=== PATIENT | male | born 1985 | race Caucasian/White ===

== ENCOUNTER 2017-03-27 15:57 | Emergency (ER) | payer OTHER ==
[~2017-03-27] VITALS: Ht 177.8 cm; Wt 113.4 kg
[~2017-03-27 15:57] MED LIST: OMEP20CA9 PO
[2017-03-27 16:36] LABS: BASO # 0.1 x10^3/uL (0.0-0.2); BASO % 1 % (0-3); EOS % 5 % (0-3); HEMATOCRIT 40.9 % (39.0-53.0); HEMOGLOBIN 13.6 g/dL (13.0-17.5); LYMPH # 3.2 x10^3/uL (1.0-4.8); LYMPH % 38 % (24-48); MEAN CORPUSCULAR HEMOGLOBIN 28 pg (25-35); MEAN CORPUSCULAR HGB CONC 33 g/dL (31-37); MEAN CORPUSCULAR VOLUME 84 fL (79-100); MONO % 8 % (0-9); NEUT % 49 % (31-73); PLATELET COUNT 399 x10^3/uL (140-400); RED CELL DISTRIBUTION WIDTH 14.1 % (11.5-14.5); WHITE BLOOD COUNT 8.7 x10^3/uL (4.0-11.0)
[2017-03-27 16:48] LABS: ANION GAP 7 (6-14); BLOOD UREA NITROGEN 11 mg/dL (8-26); CALCIUM 9.3 mg/dL (8.5-10.1); CARBON DIOXIDE 28 mmol/L (21-32); CHLORIDE 104 mmol/L (98-107); CREATININE 0.9 mg/dL (0.7-1.3); GFR 97.8; GLUCOSE 107 mg/dL (70-99); POTASSIUM 3.7 mmol/L (3.5-5.1); SODIUM 139 mmol/L (136-145)
[2017-03-27 16:56] LABS: ALBUMIN 3.7 g/dL (3.4-5.0); ALK PHOS 76 U/L (46-116); ALT (SGPT) 27 U/L (16-63); AST (SGOT) 16 U/L (15-37); DIRECT BILIRUBIN < 0.1 mg/dL (0.0-0.2); MAGNESIUM 2.2 mg/dL (1.8-2.4); TOTAL BILIRUBIN 0.2 mg/dL (0.2-1.0); TOTAL PROTEIN 7.9 g/dL (6.4-8.2)
[2017-03-27 17:02] LABS: CKMB MASS 0.6 ng/mL (0.0-3.6)
[2017-03-27 17:12] VITALS: BP 127/68
--- NOTE | 2017-03-27 17:21 | RAD ---
CT HEAD WO CONTRAST dated 03/27/2017 5:04 PM Indication: > LT SD HEAD PAIN AND DIZZY X 1 WK, NO PRIORS Comparison: No comparison is available. Technique: Noncontrast images were performed. One or more of the following individualized dose reduction techniques were utilized for this examination: 1. Automated exposure control 2. Adjustment of the mA and/or kV according to patient size 3. Use of iterative reconstruction technique Findings: There is no apparent intracranial mass, hemorrhage or abnormal extra-axial fluid collection. No area of abnormal density is seen in the brain. The ventricles and basilar cisterns are normally positioned. There is some mucosal thickening in the maxillary and ethmoid sinuses. The mastoid air cells are clear. IMPRESSION: No evidence of acute intracranial abnormality. Electronically signed by: Neymar Yeager Jr., MD (03/27/2017 5:19 PM) [facility]
--- NOTE | 2017-03-27 17:25 | EKG ---
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
[2017-03-27] MEDS ORDERED: AMOX1TAB61 PO (17:30)
--- NOTE | 2017-03-27 17:31 | PHYS DOC ---
Past Medical History Past Medical History: GERD, Hypertension Past Surgical History: No Surgical History Alcohol Use: None Drug Use: Marijuana Adult General Chief Complaint Chief Complaint: OTHER COMPLAINTS HPI HPI Patient is a 31 year old male brought to the ED by family members. Patient states "I woke up feeling drunk and use the". He complains of pain on the left side of his head. He was concerned that the symptoms might be related to his blood pressure. Patient states that one week ago he was driving, he felt a "pop" on the left side of his head, he had never had this before. He felt "severe anxiety". He went to the ER in [facility] and was diagnosed with elevated blood pressure. He had a CT scan of his head and blood work which were reported to be normal. Since then, he feels like he is been dizzy all the time. It is not described as a vertigo type dizziness. It is not positional. One time it was worsened by eating a candy bar. He "feels drunk", like he feels off balance when he is walking. He saw his doctor about 5 days ago and was started on a new blood pressure medicine which she has been taking as directed. He believes his blood pressure in the office was about 148/90 something. Also, they started him on Flonase nasal spray a week ago because they thought some of the symptoms were due to allergies. He has been using it as directed, he feels like some of his symptoms have improved. Patient and family are concerned because his dad had an AL in his 30s and at the age of 43 related to cardiac causes. His sister has a cardiac history. The patient quit smoking. He does not have diabetes to his knowledge. PCP Dr. Chaparro He was started on lisinopril 5 days ago, to take one half daily for 10 days and then one whole daily. He has been taking as directed. He also takes nortriptyline at bedtime for some chronic stomach pain condition, that was prescribed by a GI doctor at [facility]. He also was prescribed Flonase nasal spray a week ago and has been taking daily. Review of Systems Review of Systems Constitutional: Denies fever or chills [] HENT: He had some nasal congestion and postnasal drainage which has improved after initiation of Flonase Respiratory: Denies cough or shortness of breath [] Cardiovascular: As in history of present illness for history, he has not had chest pain GI: As in history of present illness : Denies dysuria or hematuria [] Musculoskeletal: Denies back pain or joint pain [] Integument: Denies rash or skin lesions [] Neurologic: As in history of present illness Allergies Allergies Allergies Coded Allergies Type Severity Reaction Last Updated Verified No Known Drug Allergies 09/30/15 No Physical Exam Physical Exam Constitutional: Well developed, well nourished, no acute distress, non-toxic appearance. Blood pressure 147/84, heart rate 65, pulse ox on room air 96% HENT: Normocephalic, atraumatic, bilateral external ears normal, bilateral EACs normal, bilateral TMs normal, oropharynx moist, no oral exudates, nose normal. [ ] Eyes: PERRLA, EOMI, conjunctiva normal, no discharge. [] Neck: Normal range of motion, supple, no stridor. [] Cardiovascular:Heart rate regular rhythm, no murmur [] Lungs & Thorax: Bilateral breath sounds clear to auscultation [] Skin: Warm, dry, no erythema, no rash. [] Extremities: No tenderness, no cyanosis, no clubbing, ROM intact, no edema. [] Neurologic: Alert and oriented X 3, normal motor function, no focal deficits noted. [] Current Patient Data Vital Signs Vital Signs Date Time Temp Pulse Resp B/P (MAP) Pulse Ox O2 Delivery O2 Flow Rate FiO2 03/27/17 16:03 97.7 58 20 147/84 (105) 93 Room Air 97.7 Lab Values Laboratory Tests Test 03/27/17 16:13 White Blood Count 8.7 x10^3/uL (4.0-11.0) Red Blood Count 4.90 x10^6/uL (4.30-5.70) Hemoglobin 13.6 g/dL (13.0-17.5) Hematocrit 40.9 % (39.0-53.0) Mean Corpuscular Volume 84 fL (79-100) Mean Corpuscular Hemoglobin 28 pg (25-35) Mean Corpuscular Hemoglobin Concent 33 g/dL (31-37) Red Cell Distribution Width 14.1 % (11.5-14.5) Platelet Count 399 x10^3/uL (140-400) Neutrophils (%) (Auto) 49 % (31-73) Lymphocytes (%) (Auto) 38 % (24-48) Monocytes (%) (Auto) 8 % (0-9) Eosinophils (%) (Auto) 5 % (0-3) H Basophils (%) (Auto) 1 % (0-3) Neutrophils # (Auto) 4.2 x10^3uL (1.8-7.7) Lymphocytes # (Auto) 3.2 x10^3/uL (1.0-4.8) Monocytes # (Auto) 0.7 x10^3/uL (0.0-1.1) Eosinophils # (Auto) 0.5 x10^3/uL (0.0-0.7) Basophils # (Auto) 0.1 x10^3/uL (0.0-0.2) Sodium Level 139 mmol/L (136-145) Potassium Level 3.7 mmol/L (3.5-5.1) Chloride Level 104 mmol/L (98-107) Carbon Dioxide Level 28 mmol/L (21-32) Anion Gap 7 (6-14) Blood Urea Nitrogen 11 mg/dL (8-26) Creatinine 0.9 mg/dL (0.7-1.3) Estimated GFR (Cockcroft-Gault) 97.8 Glucose Level 107 mg/dL (70-99) H Calcium Level 9.3 mg/dL (8.5-10.1) Magnesium Level 2.2 mg/dL (1.8-2.4) Total Bilirubin 0.2 mg/dL (0.2-1.0) Direct Bilirubin < 0.1 mg/dL (0.0-0.2) Aspartate Amino Transferase (AST) 16 U/L (15-37) Alanine Aminotransferase (ALT) 27 U/L (16-63) Alkaline Phosphatase 76 U/L (46-116) Creatine Kinase 91 U/L (39-308) Creatine Kinase MB (Mass) 0.6 ng/mL (0.0-3.6) Creatine Kinase MB Relative Index 0.7 % (0-4) Troponin I Quantitative < 0.017 ng/mL (0.000-0.055) Total Protein 7.9 g/dL (6.4-8.2) Albumin 3.7 g/dL (3.4-5.0) Laboratory Tests 03/27/17 16:13 Laboratory Tests 03/27/17 16:13 EKG EKG 12-lead EKG read by me. Sinus rhythm. Heart rate 65. There are no acute ST or T wave changes indicative of ischemia or infarction. No STEMI. No rhythm disturbance. 1607[] Radiology/Procedures Radiology/Procedures CT scan of the head read by the radiologist. No intracranial findings or abnormality. They did note some mucosal thickening in the maxillary and ethmoid sinuses.[] Course & Med Decision Making Course & Med Decision Making Pertinent Labs and Imaging studies reviewed. (See chart for details) 31-year-old male brought by family for complaints of head pain and non-vertigo dizziness for about a week. He was concerned about his blood pressure but here in the ED it was 147/84, and I am not concerned about that since he has just started on an antihypertensive, and also I don't believe that level of blood pressure would be causing any of the symptoms. Labs are entirely unremarkable including cardiac. I don't believe the patient's complaints sound cardiac. CT scan did note some sinus mucosal thickening. He was recently started on Flonase which has helped some of his symptoms. I think it would be reasonable to treat him for sinus infection to see if that would improve his symptoms as well. See instructions for plan. [] Dragon Disclaimer Dragon Disclaimer This electronic medical record was generated, in whole or in part, using a voice recognition dictation system. Departure Departure Impression: Primary Impression: Sinusitis, acute Disposition: 01 HOME, SELF-CARE Condition: STABLE Referrals: EYAD DEJESUS (PCP) Patient Instructions: Sinusitis, [id number] Additional Instructions: Today, your blood pressure was 147/84. I don't believe that would be causing your symptoms. Continue to take your blood pressure medicine as directed and follow up as directed with your primary care doctor. Labs, including cardiac enzymes, EKG, and CT scan of the head did not show anything CT scan did show some thickened sinus mucosa which often is related to sinus infection. Continue to use Flonase as prescribed. We will treat you with antibiotics for possible sinus infection and see if this helps your symptoms. Drink plenty of fluids. If your symptoms are not improving in 1-2 weeks, recheck with your doctor for further evaluation. Scripts Amoxicillin/Potassium Clav (AUGMENTIN 875-125 TABLET) 1 Each Tablet 1 TAB PO BID for sinus infection, #20 TAB Prov: ERIS NICOLE MD 03/27/17 ERIS NICOEL MD Mar 27, 2017 17:31
== END 2017-03-27 17:37 | disposition home or self-care (01) ==
LOC: ER 15:57
DX: J01.90 Acute sinusitis, unspecified (principal); I10 Essential (primary) hypertension; K21.9 Gastro-esophageal reflux disease without esophagitis; Z87.891 Personal history of nicotine dependence
CPT/HCPCS: 36415; 70450; 80048; 80076; 82553; 83735; 84484; 85025; 93005; 99285-25

== ENCOUNTER 2017-10-22 15:37 | Emergency (ER) | payer OTHER | END 2017-10-22 16:02 | disposition home or self-care (01) | LOC: ER 16:02 | DX: J02.9 Acute pharyngitis, unspecified (principal); K21.9 Gastro-esophageal reflux disease without esophagitis; I10 Essential (primary) hypertension | CPT/HCPCS: 99283 ==